=== PATIENT | male | born 1975 | race American Indian/Alaskan Native ===

== ENCOUNTER 2017-09-01 08:58 | Outpatient (CLI) | payer OTHER ==
--- NOTE | 2017-09-01 09:24 | XRay Report ---
Left ankle 3 views: History: Left ankle pain. Findings: No articular abnormality. No fracture or dislocation. Faint calcific density identified adjacent to the medial aspect of the medial malleolus is probably related to calcification secondary to oid injury. Other possibility would be elevated calcified periosteum. Impression: Findings as detailed above.
== END 2017-09-01 08:59 | disposition home or self-care (01) ==
LOC: SPVIMAG 08:58
PROVIDERS: ATTEND Orthopaedic Surgery Sports Medicine
DX: M25.572 Pain in left ankle and joints of left foot (principal)